=== PATIENT | female | born 2000 | race Caucasian/White ===

== ENCOUNTER 2024-03-21 13:19 | Emergency (ER) | payer BC, SELFPAY ==
[2024-03-21 13:20] VITALS: BP 132/83; PULSE 83; RESP 20; TEMP 36.8; O2SAT 96
--- NOTE | 2024-03-21 14:12 | ED.SKABFB ---
HPI - Skin/Abscess/Foreign Bdy General Chief complaint: Skin/Abscess/Foreign Body Stated complaint: cellulitis or abscess? Time Seen by Provider: 03/21/24 13:57 Source: patient Mode of arrival: ambulatory Limitations: no limitations History of Present Illness HPI narrative: This is a 24-year-old female who presents to the ED with chief complaint of possible abscess to the left buttock. Patient reports that she was seen earlier this week at another facility and given prescription for Keflex since the area was already draining. She states that the area has been continually draining small amounts of purulent drainage. Is quite painful to palpation. Denies fevers, chills, nausea, vomiting, troubles with bowel movements or urination. Related Data Allergies Allergy/AdvReac Type Severity Reaction Status Date / Time No Known Allergies Allergy Verified 03/21/24 13:24 Review of Systems Review of Systems: All systems as dictated in HPI Exam Narrative: GENERAL: Well-appearing, well-nourished, and in no acute distress. HEAD: Normocephalic, atraumatic. EYES: PERRLA and EOMI. ENT: Nares clear, no rhinorrhea or epistaxis. Mucous membranes moist. Oropharynx without tonsillar hypertrophy exudate or other lesions. NECK: Supple. No adenopathy or masses. CHEST: No respiratory distress. Clear to auscultation. No wheezes rales or rhonchi HEART: Regular rate and rhythm. No murmur heard. Normal peripheral pulses. ABDOMEN: Soft, nontender, nondistended, normal active bowel sounds. MSK: Normal range of motion. No edema. SKIN: Induration and erythema to the left central buttock. No perianal involvement. Mild amount of purulent /bloody drainage noted. Tender to palpation. NEURO: Alert and oriented x4. No focal deficits. PSYCH: Normal mood and affect. Course Vital Signs Vital signs: Vital Signs Temperature 98.3 F 03/21/24 13:20 Pulse Rate 83 03/21/24 13:20 Respiratory Rate 03/21/24 13:20 Blood Pressure 132/83 03/21/24 13:20 Pulse Oximetry 96 03/21/24 13:20 Oxygen Delivery Room Air 03/21/24 13:20 Temperature 98.3 F 03/21/24 13:20 Pulse Rate 83 03/21/24 13:20 Respiratory Rate 03/21/24 13:20 Blood Pressure 132/83 03/21/24 13:20 Pulse Oximetry 96 03/21/24 13:20 Oxygen Delivery Room Air 03/21/24 13:20 Procedures Abscess I/D lower extremity: Date of Incision: 03/14/24 Time of Incision: 14:39 Side (if applicable): left (buttock) Local Anesthetic: lidocaine 1% and with epi Amount of anesthesia used (mL): 6 Technique: needle aspiration Amount of fluid expressed (mL): 10 Irrigation: Yes Packing used?: none I&D Results: Pus and Blood Complications: pain Abcess I&D Additional Comments: the area was prepped with drapes and over 9 swabs. She tolerated the procedure well with no complications. Able to express a moderate amount of purulent material. Dressed with nonstick dressing. MDM - Skin/Abscess/Foreign Bdy MDM Narrative Medical decision making narrative: this is a 24-year-old female who presents to the ED with chief complaint of possible abscess to left buttock that she noticed earlier this week. Vitals are normal. Exam is remarkable for the above. There is an indurated section of the central left buttock that is consistent with abscess. The area was prepped and incision and drainage was performed. Moderate amount of purulent material expressed. Patient has significant relief of her pain following the procedure. she already has antibiotic prescription from other facility and I encouraged her to continue taking this through the full course. Pt will be discharged in stable condition. Return precautions given and supportive measures discussed. Pt is understanding and agreeable with plan for discharge and follow-up with PCP. Differential Diagnosis Differential diagnosis: Likely abscess of ski
== END 2024-03-21 14:50 | disposition home or self-care (01) ==
PROVIDERS: Emergency Provider Physician Assistant
DX: L02.31 Cutaneous abscess of buttock (principal)
CPT/HCPCS: 10060; 10160; 99282

== ENCOUNTER 2024-06-19 12:02 | Emergency (ER) | payer BC, SELFPAY ==
[2024-06-19 12:15] VITALS: BP 124/69; PULSE 70; RESP 14; TEMP 37; O2SAT 99
--- NOTE | 2024-06-19 14:11 | PC.NURSE ---
Pt did not respond to re vitals after mult attempts, pt did not notify nurse of exiting ER.
== END 2024-06-19 14:11 | disposition left against medical advice (07) ==
LOC: ANHED 14:14
DX: R22.30 Localized swelling, mass and lump, unspecified upper limb (principal)
CPT/HCPCS: 99199

== ENCOUNTER 2024-09-10 22:09 | Emergency (ER) | payer BC, SELFPAY ==
--- NOTE | ~2024-09-10 | CT_ITS ---
EXAMINATION: CT cervical spine wo con DATE: 09/11/2024 02:58 INDICATION: Left neck pain TECHNIQUE: Computed tomography (CT) of the cervical spine was performed without intravenous contrast. Automated exposure control and iterative reconstruction technique were employed. The dose-length pro duct was 460.63 mGy-cm. COMPARISON: None FINDINGS: 15 degrees cervicothoracic levocurvature. Slight reversal of the normal cervical lordosis. No spondyl olisthesis or facet subluxation. Vertebral body and disc heights are normal. Cervical uncovertebral a nd facet joints are normal. No central canal or neural foraminal stenosis. Visualized upper lungs are clear. Cervical soft tissues are unremarkable. IMPRESSION: 1. 15 degrees cervicothoracic levocurvature and mild reversal of the normal cervical lordosis which c ould be positional or due to muscle spasm. Otherwise unremarkable cervical spine CT. Reviewed, dictated and finalized at location A. [facility] PLANER IMPRESSION: 1. 15 degrees cervicothoracic levocurvature and mild reversal of the normal cer vical lordosis which could be positional or due to muscle spasm. Otherwise unre markable cervical spine CT.
--- OUTSIDE RECORDS SUMMARY | 2024-09-10 22:11 | XMS_ITS | Continuity of Care Document ---
Author Organization [facility] Address [address] [place] [address] Care Team Providers Care Barrel Lathe Operator Outside Name Role Phone NOELLE ANSARI Primary Care Provider Unavail able Assessment No assessment recorded. Plan of Treatment Reminders Order Date Submit Date Provider Last Modified By Organization Details Last Modified Time Details Appointments ANY 30 2023 04:00P M NOELLE ALEJO MD Not available Not available Not available Lab None record ed. Referral behavi oral health referr al - Social stress ors 2023 Biju [facility], [address] [facility] , [address], [place], [address], 09/09/2024 16:51:24 Procedures None record ed. Surgeries None record ed. Imaging None record ed. Medication Orders doxycy dobbs hyclat e 100 mg capsul e 2023 Elias Borges [facility] #[id number], [address], [place], [place], [id number], 08/18/2024 15:30:34 Mirala x 17 gram/d ose oral powder 2023 [id number], [address], [place], [place], [id number], 08/18/2024 15:30:30 famoti dine 20 mg tablet 2023 024 [id number], [address], [place], [place], [id number], 08/18/2024 15:30:33 Patient TargetsNo targets recorded. Patient Instructions Encounter Date Encounter Id Patient Instructions Last Modified By Organization Details Last Modified Time 08/18/2024 [id number] A healthy lifestyle: care instructions [email or web address] Not available 08/18/2024 19:34:05 On the date of this encounter, I saw and examined the patient, personally verifying the trin[place] and critical findings in the resident? s note. I reviewed and agree with the resident/fellow? s findings and plan as discussed. ~MD Ricky [email or web address] Not available 08/18/2024 15:01:03 Reason for Referral Behavioral Health Referral f or Depressive disorder Social stressors Referring Physician: Noelle Alejo, Automatic Brine Mixer Operator, Encounter Date: 08/18/2024 Problems Name Problem SNOMED Code Status Onset Date Resolution Date Notes Provider Name and Address Organization Details Recorded Time Family planning surveill ance Active 2018 OCP - Seasoniqu e NOELLE ALEJO MD Attn: Gypsy harrison,[address] [facility], [place], [address], [facility] 4 11:21:52 Dysuria 53598735 Completed 202108/19/2024 NOELLE ALEJO MD Attn: Gypsy harrison,[address] [facility], [place], [address], [place] - [facility] 4 11:21:17 Hidraden itis suppurat etienne 85491313 Active 2023 NOELLE ALEJO MD Attn: Gypsy harrison,[address] [facility], [place], [address], [place] - [facility] 4 11:40:05 Depressi ve disorder 20515183 Active 2023 NOELLE ALEJO MD Attn: Gypsy harrison,[address] [facility], [place], [address], [place] - [facility] 4 11:40:08 Acid reflux 369885681 Active 2023 NOELLE ALEJO MD Attn: Gypsy hunter,[address] [facility], [place], [address], [place] - [facility] 4 11:40:10 Constipa tion 50225052 Active 2023 NOELLE ALEJO MD Attn: Mitchpushpa harrison,[address] [facility], [place], [address], [place] - [facility] 4 11:40:12 At increase d risk of sexually transmit lisa infectio n 967470582 Active 2023 NOELLE ALEJO MD Attn: Gypsy harrison,[address] [facility], [place], [address], [place] - [facility] 4 11:40:15 History of sexually transmit lisa disease 964479326 Active 2023 NOELLE ALEJO MD Attn: Mitchpushpa harrison,[address] [facility], [place], [address], [place] - [facility] 4 11:40:17 Obesity 455149963 Active 2023 NOELLE ALEJO MD Attn: Gypsy harrison,[address] [facility], [place], [address], [place] - [facility] 4 11:40:23 Problem Notes None recorded. Procedures Surgical History Date Name Laterality Status Provider Name and Address Organization Details Recorded Time 06/12/20 21 Vulvar Biopsy completed BRIAN Donis Attn: Accounting,[address] [facility], [place], [address], [place] - [facility] 06/12/2021 15:47:33 Cholecystectomy completed Soledad Solano [place] - [facility] 08/18/2024 13:48:04 Imaging Results None recorded. Procedure Notes None recorded. Medical Equipment None Reported. Allergies No known drug allergies Medications Name Sig Start Date Stop Date Status Note LastModified by Organization Details LastModified Time multivitami n tablet Take 1 tablet every day by oral route. 12/25 completed Not Available Not Available Not Available cyclobenzap rine 10 mg tablet active Not Available Not Available Not Available amoxicillin 500 mg capsule TAKE 1 CAPSULE BY MOUTH THREE TIMES A DAY X7 DAYS 08/18 completed Not Available Not Available Not Available Miralax 17 gram/dose oral powder Take 17 g every day by oral route as needed for 30 days, for constipat ion. 2023 active Not Available Not Available Not Avai lable doxycycline hyclate 100 mg capsule Take 1 capsule twice a day by oral route for 30 days. active Not Available Not Available No t Available clindamycin HCl 300 mg capsule TAKE 1 CAPSULE BY MOUTH EVERY 6 HOURS FOR 10 DAYS 08/18 completed Not Available Not Available Not Available fluconazole 150 mg tablet TAKE 1 TABLET BY MOUTH ONCE FOR 1 DAY active Not Available Not Available No t Available fluconazole 200 mg tablet 1 TABLET AT END OF ANTIBIOTI CS AND 1 TABLET 72 HOURS LATER 10/09 completed Not Available Not Available Not Available phenazopyri dine 200 mg tablet Take 1 tablet 3 times a day by oral route for 2 days. 05/16 completed Not Available Not Available Not Available prednisone 20 mg tablet TAKE 1 TABLET BY MOUTH DAILY FOR 5 DAYS 08/18 completed Not Available Not Available Not Available terconazole 0.8 % vaginal cream Insert 1 applicato rful every day by vaginal route at bedtime for 3 days. 08/06 completed Not Available Not Available Not Available Zithromax Z-Sheldon 250 mg tablet TAKE 2 TABLETS (500 MG) BY ORAL ROUTE ONCE DAILY FOR 1 DAY THEN 1 TABLET (250 MG) BY ORAL ROUTE ONCE DAILY FOR 4 DAYS 05/27 completed Not Available Not Available Not Available metronidazo le 500 mg tablet TAKE 1 TABLET BY MOUTH EVERY 12 HOURS FOR 7 DAYS 08/18 completed Not Available Not Available Not Available sulfamethox azole 800 mg-trimetho prim 160 mg tablet TAKE 1 TABLET BY MOUTH TWICE DAILY FOR 10 DAYS 08/18 completed Not Available Not Available Not Available doxycycline monohydrate 100 mg tablet TAKE 1 TABLET BY MOUTH TWICE A DAY *NOT CONTRACTE D* 08/18 completed Not Available Not Available Not Available cefadroxil 500 mg capsule TAKE 1 CAPSULE BY MOUTH EVERY 12 HOURS FOR 7 DAYS 08/18 completed Not Available Not Available Not Available famotidine 20 mg tablet Take 1 tablet twice a day by oral route for 30 days. active Not Available Not Available No t Available imiquimod 5 % topical cream packet APPLY TO THE AFFECTED AREA(S) BY TOPICAL ROUTE 5 TIMES PER WEEK 05/24 completed Not Available Not Available Not Available doxycycline monohydrate 100 mg capsule TAKE 1 CAPSULE BY MOUTH TWICE A DAY FOR 7 DAYS 08/18 completed Not Available Not Available Not Available cephalexin 500 mg capsule TAKE 1 CAPSULE BY MOUTH EVERY 8 HOURS FOR 10 DAYS 08/18 completed Not Available Not Available Not Available ferrous sulfate 325 mg (65 mg iron) tablet Take 1 tablet every day by oral route. 05/16 completed Not Available Not Available Not Available ceftriaxone 500 mg solution for injection inject 500mg IM 1 time dose 08/06 completed Not Available Not Available Not Available methylpredn isolone 4 mg tablets in a dose pack TAKE 6 TABLETS ON DAY 1 DIRECTED ON PACKAGE AND DECREASE BY 1 TAB EACH DAY FOR A TOTAL OF 6 DAYS 10/09 completed Not Available Not Available Not Available doxycycline hyclate 100 mg tablet TAKE 1 TABLET BY MOUTH TWICE A DAY FOR 7 DAYS 10/09 completed Not Available Not Available Not Available naproxen 500 mg tablet active Not Available Not Available Not Available amoxicillin 875 mg-potassiu m clavulanate 125 mg tablet TAKE 1 TABLET BY MOUTH TWICE A DAY 10/09 completed Not Available Not Available Not Available Depo-[place] a 150 mg/mL intramuscul ar syringe Inject 150 mL every 3 months by intramusc ular route. 05/21 completed Not Available Not Available Not Available azithromyci n 500 mg tablet TAKE 2 TABLETS BY MOUTH EVERY DAY FOR 1 DAY 01/30 completed Not Available Not Available Not Available Vitamin D3 25 mcg (1,000 unit) tablet Take 1 tablet every day by oral route. 05/16 completed Not Available Not Available Not Available nitrofurant oin monohydrate /macrocryst als 100 mg capsule TAKE 1 CAPSULE BY MOUTH TWICE DAILY 08/18 completed Not Available Not Available Not Available Lo Loestrin Fe 1 mg-10 mcg (24)/10 mcg (2) tablet Take 1 tablet every day by oral route. 05/21 completed Not Available Not Available Not Available calcium 600 mg (as carbonate)- vitamin D3 20 mcg (800 unit) tablet Take 1 tablet twice a day by oral route for 30 days. 05/02 completed Not Available Not Available Not Available Daysee 0.15 mg-30 mcg (84)/10 mcg(7) tablets,3 month dose pack TAKE ONE TABLET BY MOUTH EVERY DAY 08/18 completed Not Available Not Available Not Available Xulane 150 mcg-35 mcg/24 hr transdermal patch Apply 1 patch every week by transderm al route. 05/27 completed Not Available Not Available Not Available Vitals Date Recorded Body height Body mass index (BMI) Body weight Body temperature Heart rate Respiratory rate Systolic blood pressure Diastolic blood pressure Provider Name and Address Organization Details Last Updated DateTime 4 158.75 cm 30.9 kg/m2 68560.1 g 98.3 [degF] 80 /min 20 /min 128 mm[Hg] 79 mm[Hg] Soledad Solano [place] - [facility] 4 13:47:34 Social History Question Answer Notes LastModified by Organizat ion Details LastModified Time Tobacco Smoking Status Never Smoker Farida Berger MA [facility], [place] - [place] 08/28/2017 11:10:17 Do You Have An Advance Directive? No Information not available 08/28/2017 What Is Your Level Of Alcohol Consumption? None Information not available 08/28/2017 Is Blood Transfusion Acceptable In An Emergency? Yes Information not available 08/28/2017 What Is Your Level Of Caffeine Consumption? Moderate Information not available 08/28/2017 How Much Tobacco Do You Chew? None Information not available 08/28/2017 In The 14 Days Before Symptom Onset, Have You Had Close Contact With A Laboratory-confir med COVID-19 While That Case Was Ill? No [email or web address] Information not available 06/12/2021 In The 14 Days Before Symptom Onset, Have You Had Close Contact With A Person Who Is Under Investigation For COVID-19 While That Person Was Ill? No [email or web address] Information not available 06/12/2021 Have You Been To An Area Known To Be High Risk For COVID-19? No [email or web address] Information not available 06/12/2021 Are You Currently Employed? No Information not available 08/28/2017 What Type Of Diet Are You Following? REGULAR Information not available 08/28/2017 Which Illicit Or Recreational Drugs Have You Used? None Information not available 08/28/2017 Do You Or Have You Ever Used E-cigarettes Or Vape? Never Used Electronic Cigarettes Information not available 08/18/2019 Education 9 Information no t available 08/28/2017 What Is Your Occupation? Student Information not available 08/28/2017 Live Alone Or With Others? With Others Information not available 08/28/2017 What Was The Date Of Your Most Recent Tobacco Screening? 08/18/2024 Information not available 08/18/2024 How Many Children Do You Have? 0 Information not available 08/28/2017 Performs Monthly Self-breast Exam? Yes Information no t available 08/28/2017 Do You Use Protection During Sex? Usually Information not available 08/18/2019 What Is Your Relationship Status? Single Information not available 08/28/2017 Seat Belts Used Routinely Yes Information not available 08/28/2017 Are You Sexually Active? Yes Information not available 08/18/2019 Do You Have Smoke And Carbon Monoxide Detectors In Your Home? Yes [email or web address] Information not available 09/26/2022 Are You Passively Exposed To Smoke? No [email or web address] Information no t available 09/26/2022 Do You Or Have You Ever Used Smokeless Tobacco? Never Used Smokeless Tobacco Information not available 08/18/2019 How Much Tobacco Do You Smoke? No Information not available 08/18/2019 General Stress Level Low Information not available 08/28/2017 Do You Use Any Illicit Or Recreational Drugs? No [email or web address] Information not available 09/26/2022 Do You Use Sunscreen Routinely? No Information not available 08/28/2017 Has Tobacco Cessation Counseling Been Provided? No [email or web address] Information not available 10/09/2023 On What Date Was Tobacco Cessation Counseling Provided? 08/18/2024 Information not available 08/18/2024 How Many Years Have You Smoked Tobacco? 0 [email or web address] Information not available 08/18/2019 Do You Or Have You Ever Used Any Other Forms Of Tobacco Or Nicotine? No [email or web address] Information not available 06/12/2021 Sex: Female Functional Status Question Answer Note LastModified by Organization D etails LastModified Time What is your exercise level? Moderate Information not available 08/28/2017 Mental Status None recorded. Family History Relationship Description Onset Age of this Age Resolved Age Notes LastModified by Organization Details LastModified Time Mother Asthma Not available 11:08:30 Sister Asthma X2 Not available 11:08:47 Maternal Grandmother Diabetes mellitus Not available 2016 11:09:02 Maternal Grandmother Congestive heart failure Not available 2016 11:09:55 Notes:Great granmother Medical History Condition Response Other N High Blood Pressure N Breast Cancer N Thyroid Problems N Kidney or Bladder Problems N Lung Disease N GI Problems N Depression N Blood Clots N Acne N Eating Disorder N Breast Problem N Anemia N Anesthesia Complications N Headaches/Migraines N Ovarian Cancer N Diabetes N Anxiety Disorder N Muscle, Joint, or Bone Problems N Blood Transfusions N Seizures/Epilepsy N Polyps N Infertility N Acid Reflux (GERD) N Cancer N Abuse/Domestic Violence N Asthma N Endometriosis N High Cholesterol N Hepatitis N Liver Disease N Heart Disease N Pre-Eclampsia N Osteoporosis N Gynecological History Statement/Question Response Abnormal Pap N Flow Light Date of LMP 07/31/2024 On BCP's at Conception? N STIs/STDs Yes HPV Vaccine Y Duration of Flow (days) 7 Age at Menarche 14 Current Control Method BCPs Age at First Child Sexually Active? Y Menses Monthly No Sexual Problems? No LMP Approximate Desired Control Method BCPs Obstetrics History GPAL:G 0 P 0 0 0 0 Type Value Multiple Births 0 Full Term 0 Induced 0 Spontaneous 0 Premature 0 Living 0 Ectopics 0 Total 0 Past Encounters Encounter ID Performer Location Encounter Start Date Encounter Closed Date Diagnosis/Indication Diagnosis SNOMED-CT Code Diagnosis ICD10 Code [id number] MD [facility] [address] [facility] [address] [place] [address] 08/18/2024 13:33:25 09/01/2024 15:04:02 Obesity 059317730 E66.9 Hidradenit is suppurativa 58838247 L73.2 Depressive disorder 3548 9007 F32.A Acid reflux 128798561 K2 1.9 Constipation 19908595 K5 9.00 Screening for malignant neoplasm of cervix 624562729 Z12.4 History of sexually transmitted disease 953869147 Z86.19 [facility] sexually transmitted infection 784662883 Z20.2 Tetanus va ccination declined by patient 525843399 Z28.21 Health Concerns Section Related Observation LastModified by Organization Detai ls LastModified Time None Recorded Concern Status LastModified by Organization Details LastModified Time None Recorded Payers Encounter Date Sequence Insurance Name Policy Number Policy Recio Covered Member ID Recio Member ID Guarantor Name 08/18/2024 1 [facility] (MEDICAID REPLACEMENT - HMO) [id number] Deirdre Baxter [id number] Deirdre Baxter Notes Date Note Type Note Provider Name and Address Organization Details Recorded Time 4 text/html Deirdre Baxter is a 24 year old female with hidradenitis supurativa. She is new to my care and presents to the office to establish care. Reports the following concerns:1. Hidradenitis supurativaReports boils to axilla, multiple episodes x 5 mo.Has visited that ED consider multiple times (4-5 times) for drainage. Has received antibiotic therapy after each drainage, and cannot recall the name of the antibiotic.Normal healing, denies keloid formation. 2[facility]Reports constipation, with on and off stabbing abdominal pain, afterwards has diarrhea for a day and cycles continues. Reports having a bowel movement yesterday.Reports migraines at the same time as abdominal issues. Frontal headaches that lasts a couple of days, light makes it worse, associated with nausea but no emesis.Not taking stool softener or laxatives. 3. HeartburnReflux after meals specially containing cheese, fried or spicy.Denies regurgitation.---She is single and feels safe at home.She is unemployed, looking for employment.Good appetite but mostly eats junk food.Cycles are described as regular, on OCP - Seasonique, takes hormonal pills consecutively and has withdrawal bleeding every 3 months. LMP: three weeks ago.Sexually active with 4 partners, history of chlamydia treated, negative follow up test.Not physically active.Sleep well trough the night, with/ without heavy snoring of pauses in breathing.Has not been to the dentist.Drinks alcohol socially but barely, denies smoking or recreational drugs.Positive depression symptoms due to social stressors and unemployment. Would like to BH referral for counseling. Uzma Amezcua MD Attn: Accounting,[address] [place], [address], [facility] 08/31/2024 11:32:08 OBGyn Episode No OBEpisode recorded.
--- OUTSIDE RECORDS SUMMARY | 2024-09-10 22:11 | XMS_ITS | Data Portability ---
Author Organization [facility] Valarie Address [address] [place] [address] Care Team Providers Care Graphic Design Specialist Name Role Phone NOELLE ANSARI Primary Care Provider Unavail able Assessment No assessment recorded. Plan of Treatment Reminders Order Date Submit Date Provider Last Modified By Organization Details Last Modified Time Details Appointments ANY 30 2023 04:00P M NOELLE ALEJO MD Not available Not available Not available Lab vagina l pathog ens panel, SIMEON+pr obe, vagina l fluid 2022 023 [facility], [address], [address], [place], [address], 08/08/2023 16:13:21 cytolo gy report , thin prep, smear or scrapi ng, cervic al or vagina l - cervix /endoc ervix. collec tion techni que brush and broom 2022 023 [facility], [address], [address], [place], [address], 08/09/2023 07:18:33 chlamy monae tracho matis + neisse ehsan gonorr hoeae + tricho monas vagina lis DNA panel, SIMEON+pr obe, unspec ified specim en 2023 024 [facility], [address], [address], [place], [address], 10/11/2023 07:18:36 HIV 1 + 2, meanin gful use set 2023 024 [facility], [address] [place] [address], [address], [place], [address], 10/11/2023 07:18:38 RPR (rapid plasma reagin ), serum 2023 024 [facility], [address] [place] [address], [address], [place], [address], 10/11/2023 07:18:37 Hepati tis C IgG Ab, qual, serum 2023 024 [facility], [address] [place] [address], [address], [place], [address], 10/11/2023 07:18:34 HBsAg (hepat itis B surfac e Ag), EIA, serum 2023 024 [facility], [address] [place] [address], [address], [place], [address], 10/11/2023 07:18:37 hsv (1+2) igg, serum 2023 024 [facility], [address] [place] [address], [address], [place], [address], 10/11/2023 07:18:35 chlamy monae tracho matis + neisse ehsan gonorr hoeae + tricho monas vagina lis DNA panel, SIMEON+pr obe, unspec ified specim en 2023 024 [facility], [address] [place] [address], [address], [place], [address], 11/17/2023 07:09:24 HIV 1 + 2, meanin gful use set 2023 024 [facility], [address], [address], [place], [address], 11/17/2023 07:09:25 RPR (rapid plasma reagin ), serum 2023 024 [facility], [address] [place] [address], [address], [place], [address], 11/17/2023 07:09:25 HBsAg (hepat itis B surfac e Ag), EIA, serum 2023 024 [facility], [address] [place] [address], [address], [place], [address], 11/15/2023 11:12:52 Hepati tis C IgG Ab, qual, serum 2023 024 [facility], [address] [place] [address], [address], [place], [address], 11/17/2023 07:09:24 Referral behavi oral health referr al - Social stress ors 2023 024 [facility], [address] [place] [address], [address], [address], [place], [address], 09/09/2024 16:51:24 Procedures None record ed. Surgeries None record ed. Imaging None record ed. Medication Orders ceftri axone 500 mg soluti on for inject ion 2022 023 [id number], [address], [place], [id number], 08/06/2023 15:30:54 metron idazol e 500 mg tablet 2022 024 [id number], [address], [place], [id number], 08/18/2024 13:50:27 doxycy dobbs hyclat e 100 mg capsul e 2023 [facility] #[id number], [address] , [place], [place], [id number], 08/18/2024 15:30:34 Mirala x 17 gram/d ose oral powder 2023 [facility] #[id number], [address], [place], [place], [id number], 08/18/2024 15:30:30 famoti dine 20 mg tablet 2023 [facility] #[id number], [address] , [place], [place], [phone], 08/18/2024 15:30:33 Patient TargetsNo targets recorded. Patient Instructions Encounter Date Encounter Id Patient Instructions Last Modified By Organization Details Last Modified Time 08/06/2023 [id number] A healthy lifestyle: care instructions [email or web address] Not available 08/06/2023 16:10:16 10/09/2023 [id number] A healthy lifestyle: care instructions [email or web address] Not available 10/09/2023 15:16:49 08/18/2024 [id number] A healthy lifestyle: care instructions [email or web address] Not available 08/18/2024 19:34:05 On the date of this encounter, I saw and examined the patient, personally verifying the [place]in[place] and critical findings in the resident? s note. I reviewed and agree with the resident/fellow? s findings and plan as discussed. ~MD sonia [email or web address] Not available 08/18/2024 15:01:03 Reason for Referral Behavioral Health Referral f or Depressive disorder Social stressors Referring Physician: Noelle Alejo, Swatcher, Encounter Date: 08/18/2024 Results Created Date Observation Date Name Description Value Unit Range Abnormal Flag Note LastModifiedBy Organization Detail LastModifiedTime 01/22/2001/23/2023 NUSWA B VAGIN ITIS PLUS (VG+) atopobium vaginae Low - 0 score Not Available [facility] ([facility]) [address] [place], [address], 01/23/2023 19:09:58 01/22/20 23 01/23/2023 NUSWA B VAGIN ITIS PLUS (VG+) bvab 2 Low - 0 score Not Available [facility] ([facility]) [address] [place], [address], 01/23/2023 19:09:58 01/22/20 23 01/23/2023 NUA B VAGIN ITIS PLUS (VG+) megasphaera 1 Low - 0 score Calcu late total score by velasquez harrison the 3 indiv idual bacte rial vagin osis (BV) marke r score s toget her. Total score is inter prete d as follo ws: Total score 0-1: Indic ates the absen ce of BV. Total score 2: Indet ermin ate for BV. Addit ional clini brandie data shoul d be evalu ated to estab adithya a diagn osis. Total score 3-6: Indic ates the prese nce of BV. This test was devel oped and its perfo rmanc e jose alberto cteri stics deter mined by [facility]. It has not been clear ed or appro prabhu by the Food and Drug Admin istra tion. Not Available [facility] ([facility]) [address], [place], [address], 01/23/2023 19:09:58 01/22/20 23 01/23/2023 NUSWA B VAGIN ITIS PLUS (VG+) roscoe albicans, SIMEON Negati ve negati ve Not Available [facility] ([facility]) [address], [place], [address], 01/23/2023 19:09:58 01/22/20 23 01/23/2023 NUSWA B VAGIN ITIS PLUS (VG+) roscoe glabrata, SIMEON Negati ve negati ve Not Available [facility] ([facility]) [address], [place], [address], 01/23/2023 19:09:58 01/22/20 23 01/23/2023 NUSWA B VAGIN ITIS PLUS (VG+) trich vag by SIMEON Negati ve negati ve Not Available [facility] ([facility]) [address], [place], [address], 01/23/2023 19:09:58 01/22/20 23 01/23/2023 NUA B VAGIN ITIS PLUS (VG+) chlamydia trachomatis, SIMEON Negati ve negati ve Not Available [facility] ([facility]) [address], [place], [address], 01/23/2023 19:09:58 01/22/20 23 01/23/2023 NUA B VAGIN ITIS PLUS (VG+) neisseria gonorrhoeae, SIMEON Positi ve negati ve abnormal Not Available [facility] ([facility]) [address], [place], [address], 01/23/2023 19:09:58 01/22/20 23 01/22/2023 HBSAG SCREE N HBsAg screen Negati ve negati ve Not Available [facility] ([facility]) [address] [place], [address], 01/23/2023 19:09:58 01/22/2001/22/2023 RPR, RFX QN RPR/C ONFIR M TP RPR Non Reacti ve nonrea ctive Not Available [facility] ([facility]) [address] [place], [address], 01/23/2023 19:09:59 01/22/20 23 01/22/2023 HIV AB/P2 4 AG WITH REFLE X HIV Ab/P24 Ag screen Non Reacti ve nonrea ctive HIV Negat andreas HIV-1 /HIV- 2 antib odies and HIV-1 p24 antig en were NOT detec lisa. There is no labor atory evide nce of HIV infec tion. Not Available [facility] ([facility]) [address], [place], [address], 01/23/2023 19:10:00 01/22/2001/23/2023 URINE CULTU RE,CO MPREH ENSIV E urine culture,comp rehensive Final report abnormal Not Available [facility] ([facility]) [address], [place], [address], 01/23/2023 08:24:46 01/22/2001/23/2023 URINE CULTU RE,CO MPREH ENSIV E result 1 Commen t abnormal Beta hemol ytic Strep tococ cus, group B 25,00 0-50, 000 colon y formi ng units per mL Penic illin and ampic illin are drugs of choic e for treat ment of beta- hemol ytic strep tococ brandie infec tions . Susce ptibi lity testi ng of penic illin s and other beta- lacta m agent s appro prabhu by the FDA for treat ment of beta- hemol ytic strep tococ brandie infec tions need not be perfo rmed routi husam becau se nonsu scept ible isola jose luis are extre henrry rare in any beta- hemol ytic strep tococ cus and have not been repor lisa for Strep tococ cus pyoge honey (grou p A). (CLSI ) Not Available [facility] ([facility]) [address], [place], [address], 01/23/2023 08:24:46 01/22/2001/22/2023 HCV ANTIB CHERYL hep C virus Ab Non Reacti ve nonrea ctive HCV antib cheryl alone does not diffe renti ate betwe en previ ously resol prabhu infec tion and activ e infec tion. Equiv ocal and React andreas HCV antib cheryl resul ts shoul d be follo wed up with an HCV RNA test to suppo rt the diagn osis of activ e HCV infec tion. Not Available [facility] ([facility]) [address], [place], [address], 01/23/2023 19:09:57 01/22/20 23 01/21/2023 urina lysis , dipst ick Leukocytes Small Not Available In-Offi ce Order Internal Use Only DO Not Attach Compendium DO Not Attach Compendium, Do Not Delete/merge, 01/21/2023 16:25:52 01/22/20 23 01/21/2023 urina lysis , dipst ick Nitrite negati ve Not Available In-Office Order Internal Use Only DO Not Attach Compendium DO Not Attach Compendium, Do Not Delete/merge, 01/21/2023 16:25:52 01/22/20 23 01/21/2023 urina lysis , dipst ick Urobilinogen .2 Not Available In-Of fice Order Internal Use Only DO Not Attach Compendium DO Not Attach Compendium, Do Not Delete/merge, 01/21/2023 16:25:52 01/22/20 23 01/21/2023 urina lysis , dipst ick Protein 30 Not Available In-Office Order Internal Use Only DO Not Attach Compendium DO Not Attach Compendium, Do Not Delete/merge, 01/21/2023 16:25:52 01/22/20 23 01/21/2023 urina lysis , dipst ick pH 5.5 Not Available In-Office Order Internal Use Only DO Not Attach Compendium DO Not Attach Compendium, Do Not Delete/merge, 01/21/2023 16:25:52 01/22/20 23 01/21/2023 urina lysis , dipst ick Blood Non-He molyze d: Trace Not Available In-Office Order Internal Use Only DO Not Attach Compendium DO Not Attach Compendium, Do Not Delete/merge, 01/21/2023 16:25:52 01/22/20 23 01/21/2023 urina lysis , dipst ick Specific [place] 1.025 Not Available In-Off ice Order Internal Use Only DO Not Attach Compendium DO Not Attach Compendium, Do Not Delete/merge, 01/21/2023 16:25:52 01/22/20 23 01/21/2023 urina lysis , dipst ick Ketone Trace Not Available In-Office Order Internal Use Only DO Not Attach Compendium DO Not Attach Compendium, Do Not Delete/merge, 01/21/2023 16:25:52 01/22/20 23 01/21/2023 urina lysis , dipst ick Bilirubin Small Not Available In-Offic e Order Internal Use Only DO Not Attach Compendium DO Not Attach Compendium, Do Not Delete/merge, 01/21/2023 16:25:52 01/22/20 23 01/21/2023 urina lysis , dipst ick Glucose Negati ve Not Available In-Office Order Internal Use Only DO Not Attach Compendium DO Not Attach Compendium, Do Not Delete/merge, 01/21/2023 16:25:52 01/22/20 23 01/21/2023 urina lysis , dipst ick Appearance Cloudy Not Available In-Offi ce Order Internal Use Only DO Not Attach Compendium DO Not Attach Compendium, Do Not Delete/merge, 01/21/2023 16:25:52 01/22/20 23 01/21/2023 urina lysis , dipst ick Color Dark Yellow Not Available In-Office Order Internal Use Only DO Not Attach Compendium DO Not Attach Compendium, Do Not Delete/merge, 01/21/2023 16:25:52 08/06/20 23 08/08/2023 NUSWA B VAGIN ITIS PLUS (VG+) atopobium vaginae Low - 0 score Not Available [facility] ([facility]) [address], [place], [address], 08/08/2023 16:13:21 08/06/20 23 08/08/2023 NUSWA B VAGIN ITIS PLUS (VG+) bvab 2 Low - 0 score Not Available [facility] ([facility]) [address], [place], [address], 08/08/2023 16:13:21 08/06/20 23 08/08/2023 NUSWA B VAGIN ITIS PLUS (VG+) megasphaera 1 Low - 0 score Calcu late total score by velasquez harrison the 3 indiv idual bacte rial vagin osis (BV) marke r score s toget her. Total score is inter prete d as follo ws: Total score 0-1: Indic ates the absen ce of BV. Total score 2: Indet ermin ate for BV. Addit ional clini brandie data shoul d be evalu ated to estab adithya a diagn osis. Total score 3-6: Indic ates the prese nce of BV. This test was devel oped and its perfo rmanc e jose alberto cteri stics deter mined by [facility]. It has not been clear ed or appro prabhu by the Food and Drug Admin istra tion. Not Available [facility] ([facility]) [address] [place], [address], 08/08/2023 16:13:21 08/06/20 23 08/08/2023 NUSWA B VAGIN ITIS PLUS (VG+) roscoe albicans, SIMEON Negati ve negati ve Not Available [facility] ([facility]) [address] [place], [address], 08/08/2023 16:13:21 08/06/20 23 08/08/2023 NUSWA B VAGIN ITIS PLUS (VG+) roscoe glabrata, SIMEON Negati ve negati ve Not Available [facility] ([facility]) [address] [place], [address], 08/08/2023 16:13:21 08/06/20 23 08/08/2023 NUSWA B VAGIN ITIS PLUS (VG+) trich vag by SIMEON Negati ve negati ve Not Available [facility] ([facility]) [address] [place], [address], 08/08/2023 16:13:21 11/07/20 23 08/08/2023 NUSWA B VAGIN ITIS PLUS (VG+) chlamydia trachomatis, SIMEON Positi ve negati ve abnormal Not Available [facility] ([facility]) [address], [place], [address], 08/08/2023 16:13:21 08/06/20 23 08/08/2023 NUSWA B VAGIN ITIS PLUS (VG+) neisseria gonorrhoeae, SIMEON Negati ve negati ve Not Available [facility] ([facility]) [address] [facility], [place], [address], 08/08/2023 16:13:21 08/06/20 23 08/09/2023 IGP, RFX APTIM A HPV ASCU diagnosis: Gerber MENDES ANDREAS FOR INTRA EPITH ELIAL LESIO N OR AJAY BERTRAND . Not Available [facility] ([facility]) [address] [facility], [place], [address], 08/09/2023 07:18:33 08/06/20 23 08/09/2023 IGP, RFX APTIM A HPV ASCU specimen adequacy: Gerber sky Satis facto ry for evalu ation . Endoc ervic al and/o r squam ous metap lasti c cells (endo cervi brandie compo nent) are prese nt. Not Available [facility] ([facility]) [address], [place], [address], 08/09/2023 07:18:33 08/06/20 23 08/09/2023 IGP, RFX APTIM A HPV ASCU clinician provided ICD10: Gerber sky N89.8 Z01.4 19 Not Available [facility] ([facility]) [address], [place], [address], 08/09/2023 07:18:33 08/06/20 23 08/09/2023 IGP, RFX APTIM A HPV ASCU performed by: Commen t Yulisa tte Maureen , [employer] e[employer]o logis t Not Available [facility] ([facility]) [address] [facility], [place], [address], 08/09/2023 07:18:33 08/06/20 23 08/09/2023 IGP, RFX APTIM A HPV ASCU . . Not Available [facility] ([facility]) [address], [place], [address], 08/09/2023 07:18:33 08/06/20 23 08/09/2023 IGP, RFX APTIM A HPV ASCU note: Commen t The Pap smear is a scree lalit test desig martina to aid in the detec tion of jose ligna nt and malig nant condi tions of the uteri ne cervi x. It is not a diagn ostic proce dure and shoul d not be used as the sole means of detec ting cervi brandie cance r. Both false -posi tive and false -nega tive repor ts do occur . Not Available [facility] ([facility]) [address] [facility], [place], [address], 08/09/2023 07:18:33 08/06/20 23 08/09/2023 IGP, RFX APTIM A HPV ASCU test methodology: Commen t This liqui d based ThinP rep(R ) pap test was scree martina with the use of an image guide d syste m. Not Available [facility] ([facility]) [address], [place], [address], 08/09/2023 07:18:33 08/06/20 23 08/09/2023 IGP, RFX APTIM A HPV ASCU . Commen t The HPV DNA refle x crite ehsan were not met with this speci men resul t there fore, no HPV testi ng was perfo rmed. Not Available [facility] ([facility]) [address] [facility] [address], [place], [address], 08/09/2023 07:18:33 10/09/19 24 10/10/2023 HCV ANTIB CHERYL hep C virus Ab Non Reacti ve nonrea ctive HCV antib cheryl alone does not diffe renti ate betwe en previ ously resol prabhu infec tion and activ e infec tion. Equiv ocal and React andreas HCV antib cheryl resul ts shoul d be follo wed up with an HCV RNA test to suppo rt the diagn osis of activ e HCV infec tion. Not Available [facility] ([facility]) [address] [facility], [place], [address], 10/11/2023 07:18:34 10/09/19 24 10/10/2023 HSV 1 AND 2 AB, IGG hsv 1 IgG, type spec 39.50 index 0.00-0 .90 above high normal Negat andreas <0.91 Equiv ocal 0.91 - 1.09 Posit andreas >1.09 Note: Negat andreas indic ates no antib odies detec lisa to HSV-1 . Equiv ocal may sugge st early infec tion. If clini rudi appro priat e, retes t at later date. Posit andreas indic ates antib odies detec lisa to HSV-1 . Not Available [facility] ([facility]) [address] [facility], [place], [address], 10/11/2023 07:18:35 10/09/19 24 10/10/2023 HSV 1 AND 2 AB, IGG hsv 2 IgG, type spec <0.91 index 0.00-0 .90 Negat andreas <0.91 Equiv ocal 0.91 - 1.09 Posit andreas >1.09 HSV-2 Antib cheryl Inter preta tion: Curre nt guide lines and recom menda tions do not recom mend routi ne scree lalit for HSV-2 in asymp tomat ic indiv idual s, inclu ding those that are pregn ant. A negat andreas antib cheryl resul t indic ates no detec table antib odies to HSV-2 were found . If recen t expos ure is suspe cted, retes t in 4 to 6 weeks . Equiv ocal sampl es shoul d be retes lisa in 4 to 6 weeks . A posit andreas resul t indic ates the prese nce of detec table IgG antib cheryl to HSV-2 . FALSE POSIT ANDREAS RESUL TS MAY OCCUR . Repea t testi ng, or testi ng by a diffe rent metho d, may be indic ated in some setti ngs (e.g. patie nts with low likel ihood of HSV infec tion) . If clini rudi appro priat e, retes t 4 to 6 weeks later . HSV-2 IgG antib cheryl testi ng resul ts shoul d be clini rudi corre lated . Not Available [facility] ([facility]) [address] [place], [address], 10/11/2023 07:18:35 10/09/19 24 10/10/2023 CT, NG, TRICH VAG BY SIMEON chlamydia by SIMEON Negati ve negati ve Not Available [facility] ([facility]) [address] [place], [address], 10/11/2023 07:18:36 10/09/19 24 10/10/2023 CT, NG, TRICH VAG BY SIMEON gonococcus by SIMEON Negati ve negati ve Not Available [facility]) [address] [place], [address], 10/11/2023 07:18:36 10/09/19 24 10/10/2023 CT, NG, TRICH VAG BY SIMEON trich vag by SIMEON Negati ve negati ve Not Available [facility]) [address] [place], [address], 10/11/2023 07:18:36 10/09/19 24 10/10/2023 HBSAG SCREE N HBsAg screen Negati ve negati ve Not Available [facility]) [address] [place], [address], 10/11/2023 07:18:37 10/09/19 24 10/10/2023 RPR, RFX QN RPR/C ONFIR M TP RPR Non Reacti ve nonrea ctive Not Available [facility]) [address] [facility], [place], [address], 10/11/2023 07:18:37 10/09/19 24 10/10/2023 HIV AB/P2 4 AG WITH REFLE X HIV Ab/P24 Ag screen Non Reacti ve nonrea ctive HIV Negat andreas HIV-1 /HIV- 2 antib odies and HIV-1 p24 antig en were NOT detec lisa. There is no labor atory evide nce of HIV infec tion. Not Available [facility] ([facility]) [address] [facility], [place], [address], 10/11/2023 07:18:38 11/14/19 24 11/15/2023 HBSAG SCREE N HBsAg screen Negati ve negati ve Not Available [facility]) [address] [facility], [place], [address], 11/15/2023 11:12:52 11/14/1911/15/2023 HCV ANTIB CHERYL hep C virus Ab Non Reacti ve nonrea ctive HCV antib cheryl alone does not diffe renti ate betwe en previ ously resol prabhu infec tion and activ e infec tion. Equiv ocal and React andreas HCV antib cheryl resul ts shoul d be follo wed up with an HCV RNA test to suppo rt the diagn osis of activ e HCV infec tion. Not Available [facility] ([facility]) [address] [facility], [place], [address], 11/17/2023 07:09:24 11/14/19 24 11/17/2023 CT, NG, TRICH VAG BY SIMEON chlamydia by SIMEON Positi ve negati ve abnormal Not Available [facility] ([facility]) [address] [facility], [place], [address], 11/17/2023 07:09:24 11/14/19 24 11/17/2023 CT, NG, TRICH VAG BY SIMEON gonococcus by SIMEON Negati ve negati ve Not Available [facility] ([facility]) [address] [facility], [place], [address], 11/17/2023 07:09:24 11/14/19 24 11/17/2023 CT, NG, TRICH VAG BY SIMEON trich vag by SIMEON Negati ve negati ve Not Available [facility]) [address] [facility], [place], [address], 11/17/2023 07:09:24 11/14/19 24 11/15/2023 RPR, RFX QN RPR/C ONFIR M TP RPR Non Reacti ve nonrea ctive Not Available [facility]) [address] [facility], [place], [address], 11/17/2023 07:09:25 11/14/19 24 11/15/2023 HIV AB/P2 4 AG WITH REFLE X HIV Ab/P24 Ag screen Non Reacti ve nonrea ctive HIV Negat andreas HIV-1 /HIV- 2 antib odies and HIV-1 p24 antig en were NOT detec lisa. There is no labor atory evide nce of HIV infec tion. Not Available [facility] ([facility]) [address] [place], [address], 11/17/2023 07:09:25 Result Notes None recorded. Problems Name Problem SNOMED Code Status Onset Date Resolution Date Notes Provider Name and Address Organization Details Recorded Time Family planning surveill ance Active 2018 [facility] - Seasoniqu e NOELLE ALEJO MD Attn: Gypsy harrison,[address] [facility], [place], [address], [facility] - [facility] 4 11:21:52 Dysuria 35174373 Completed 202108/19/2024 NOELLE ALEJO MD Attn: Gypsy harrison,[address] [facility], [place], [address], [place] - [facility] 4 11:21:17 Hidraden itis suppurat etienne 30898845 Active 2023 NOELLE ALEJO MD Attn: Mitchpushpa harrison,[address] [facility], [place], [address], [place] [facility] 4 11:40:05 Depressi ve disorder 22133350 Active 2023 NOELLE ALEJO MD Attn: Gypsy harrison,[address] [facility], [place], [address], [place] [facility] 4 11:40:08 Acid reflux 946612306 Active 2023 NOELLE ALEJO MD Attn: Gypsy harrison,[address] [facility], [place], [address], [place] [facility] 4 11:40:10 Constipa tion 90818417 Active 2023 NOELLE ALEJO MD Attn: Gypsy harrison,[address] [facility], [place], [address], [place] [facility] 4 11:40:12 At increase d risk of sexually transmit lisa infectio n 215730667 Active 2023 NOELLE ALEJO MD Attn: Gypsy harrison,[address] [facility], [place], [address], [place] [facility] 4 11:40:15 History of sexually transmit lisa disease 568752178 Active 2023 NOELLE ALEJO MD Attn: Gypsy harrison,[address] [facility], [place], [address], [place] [facility] 4 11:40:17 Obesity 381090977 Active 2023 NOELLE ALEJO MD Attn: Gypsy harrison,[address] [facility], [place], [address], [place] [facility] 4 11:40:23 Problem Notes None recorded. Procedures Surgical History Date Name Laterality Status Provider Name and Address Organization Details Recorded Time 06/12/20 21 Vulvar Biopsy completed BRIAN Donis Attn: Accounting,[address] , [place], [address], [facility] - [facility] 06/12/2021 15:47:33 Cholecystectomy completed Soledad Solano [place] - [facility] 08/18/2024 13:48:04 Imaging Results None recorded. Procedure [...] completed Not Available Not Available Not Available [employer] Supervisor a 150 mg/mL intramuscul ar syringe Inject [...] Body height Body mass index (BMI) Body mass index (BMI) Percentile per age and sex Body weight Body temperature Respiratory rate Oxygen saturation Oxygen saturation in Arterial blood by Pulse oximetry Systolic blood pressure Diastolic blood pressure Provider Name and Address Organization Details Last Updated DateTime 3 158.75 cm 19.1 kg/m2 16 % 44600.8 9 g 98.2 [degF] 16 /min 97 % 97 % 110 mm[Hg] 72 mm[Hg] Jocy Perdomo RN [place] - [facility] 3 15:32:44 Date Recorded Body height Body mass index (BMI) Body weight Systolic blood pressure Diastolic blood pressure Provider Name and Address Organization Details Last Updated DateTime 08/06/2023 158.75 cm 29.3 kg/m2 14090.56 g 123 mm[Hg] 78 mm[Hg] DINH Finney [place] - [facility] 3 15:37:21 Date Recorded Body height Body mass index (BMI) Body weight Heart rate Respiratory rate Systolic blood pressure Diastolic blood pressure Provider Name and Address Organization Details Last Updated DateTime 4 158.75 cm 29.2 kg/m2 27941.9 6 g 80 /min 16 /min 113 mm[Hg] 76 mm[Hg] Consuelo Banegas [place] - [facility] 4 14:12:53 Date Recorded Body height Body mass index (BMI) Body weight Heart rate Systolic blood pressure Diastolic blood pressure Provider Name and Address Organization Details Last Updated DateTime 4 158.75 cm 29.1 kg/m2 21619.5 6 g 68 /min 128 mm[Hg] 82 mm[Hg] Adrienne Torres MA [place] - [facility] 4 15:27:14 Date Recorded Body height Body mass index (BMI) Body weight Body temperature Heart rate Respiratory rate Systolic blood pressure Diastolic blood pressure Provider Name and Address Organization Details Last Updated DateTime 4 158.75 cm 30.9 kg/m2 54070.1 g 98.3 [degF] 80 /min 20 /min 128 mm[Hg] 79 mm[Hg] Soledad Solano MA [place] - [facility] 4 13:47:34 Social History Question Answer Notes LastModified by Organizat ion Details LastModified Time Tobacco Smoking Status Never Smoker Farida Berger MA null, [place] - [facility] 08/28/2017 11:10:17 Do You Have An Advance [...] COVID-19 While That Case Was Ill? No [email or web address] Information not available 06/12/2021 In The 14 Days Before Symptom Onset, Have You Had Close Contact With A Person Who Is Under Investigation For COVID-19 While That Person Was Ill? No [email or web address] Information not available 06/12/2021 Have You Been To An Area Known To Be High Risk For COVID-19? No [email or web address] Information not available 06/12/2021 Are You Currently [...] Carbon Monoxide Detectors In Your Home? Yes [email or web address] Information not available 09/26/2022 Are You Passively Exposed To Smoke? No [email or web address] Information no t available 09/26/2022 Do You Or Have You Ever Used Smokeless Tobacco? Never Used Smokeless Tobacco Information not available 08/18/2019 How Much Tobacco Do You Smoke? No Information not available 08/18/2019 General Stress Level Low Information not available 08/28/2017 Do You Use Any Illicit Or Recreational Drugs? No [email or web address] Information not available 09/26/2022 Do You Use Sunscreen Routinely? No Information not available 08/28/2017 Has Tobacco Cessation Counseling Been Provided? No Information not available 10/09/2023 On What Date Was Tobacco Cessation Counseling Provided? 08/18/2024 Information not available 08/18/2024 How Many Years Have You Smoked Tobacco? 0 [email or web address] Information not available 08/18/2019 Do You Or Have You Ever Used Any Other Forms Of Tobacco Or Nicotine? No [email or web address] Information not available 06/12/2021 Sex: Female Functional [...] or Bladder Problems N Lung Disease N Depression N Blood Clots N GI Problems N Acne N Breast Problem N Eating Disorder N Anemia N Anesthesia Complications N Headaches/Migraines [...] Diagnosis/Indication Diagnosis SNOMED-CT Code Diagnosis ICD10 Code [id number] Tahir TamayoCarleen Aubrey HC ([employer] WORKER) [address] [place] [address] 08/28/2017 10:34:30 08/28/2017 12:26:34 Family planning surveillance 246097366 Z30.09 [id number] Tahir TamayoCarleengloria Burgos HC ([employer] WORKER) [address] [place] [address] 0 05/21/2018 14:57:54 05/21/2018 16:40:51 Family planning surveillance 265072378 Z30.09 Exposure t o sexually transmissible disorder 998300434 Z20.2 Z11.3 [id number] Tahir TamayoCarleengloria Burgos ([employer]) [address] [place] [address] 0 08/18/2019 11:12:57 08/18/2019 13:19:43 Family planning surveillance 512054596 Z30.09 Exposure t o sexually transmissible disorder 087225750 Z20.2 Z11.3 Genital warts 578492579 A63.0 Acute urin manuel tract infection 424074830 N39.0 [id number] MD Aubrie Patterson [address] [place] [address] Dr [address] [place] [address] 1 05/31/2020 10:40:08 06/01/2020 11:44:19 History of sexually transmitted disease 743207985 Z86.19 At [facility] ed risk of urinary tract infection 607644046 Z91.89 [id number] MD Aubrie Patterson [address] [place] [address] Dr [address] [place] [address] [address] 12/28/2020 09:42:00 12/29/2020 11:40:40 Venereal disease screening 743481023 Z11.3 At [facility] ed risk of urinary tract infection 239528627 Z91.89 [id number] MD Aubrie Patterson [address] [place] [address] 01/03/2021 08:53:22 01/09/2021 11:18:32 Gonorrhea 89877222 A54.9 [id number] BRIAN Donis [address] [facility] [place] [address] 04/26/2021 15:05:26 04/27/2021 06:33:02 Vaginal discharge 263008341 N89.8 High risk sexual behavior 107705510 Z72.51 Easy bruising 704192290 R58 Surveillan ce of oral contraception 519368762 Z30.41 [id number] BRIAN Donis [address] [facility] [place] [address] 05/24/2021 16:27:52 05/25/2021 10:03:24 Vaginal discharge 668161674 N89.8 Lesion of vulva 99284091 6 N90.89 [id number] BRIAN Donis [address] [facility] [place] [address] 06/12/2021 14:58:31 06/13/2021 10:32:12 Lesion of vulva 147657887 N90.89 [id number] MD Aubrie Patterson [address] [facility] [place] [address] 08/15/2021 15:05:58 08/16/2021 05:51:47 Venereal disease screening 279813874 Z11.3 At [facility] risk of urinary tract infection 907703117 Z91.89 Acute urin manuel tract infection 879967594 N39.0 [id number] MD Aubrie Patterson [address] [facility] [place] [address] 10/18/2021 11:59:11 10/19/2021 06:43:59 Venereal disease screening 897902172 Z11.3 Vaginal discharge 159393 006 N89.8 Pruritus of vagina 17939 003 L29.3 [id number] BRIAN Donis [address] [facility] [place] [address] 12/04/2021 11:22:20 12/05/2021 04:35:42 High risk sexual behavior 059654971 Z72.51 [id number] BRIAN Donis [address] [facility] [place] [address] 12/25/2021 16:28:51 12/26/2021 06:59:27 Vaginal discharge 584965649 N89.8 High risk sexual behavior 802801771 Z72.51 Body mass index 25-29 - overweight 488277043 Z68.28 [id number] BRIAN Donis [address] [facility] [place] [address] 01/31/2022 16:13:20 02/01/2022 06:02:39 Dysuria 39366119 R30.9 History of sexually transmitted disease 474662709 Z86.19 Contracept ion care management 237772001 Z30.9 [id number] BRIAN Donis [address] [facility] [place] [address] 05/02/2022 15:18:38 05/03/2022 08:18:23 Vaginal discharge 467943915 N89.8 [id number] BRIAN Donis [address] [facility] [place] [address] 05/16/2022 10:53:49 05/21/2022 10:10:01 Vaginal discharge 441396279 N89.8 High risk sexual behavior 174195748 Z72.51 Contracept ion care management 255609221 Z30.9 [id number] BRIAN Donis [address] [facility] [place] [address] 06/20/2022 11:20:33 06/21/2022 08:45:13 Vaginal irritation 990540996 N89.8 Body mass index 30+ - obesity 880540099 Z68.30 [id number] MD Aubrie Bailon [address] [facility] [place] [address] 08/27/2022 14:49:47 08/28/2022 12:37:47 Obesity 327264219 E66.9 Venereal d isease screening 016983541 Z11.3 Bacterial vaginosis 4197 44853 N76.0 [id number] Farzaneh Fischer, [facility]- Aubrie [address] [facility] [place] [address] 09/26/2022 09:35:59 09/27/2022 09:47:42 High risk sexual behavior 044250188 Z72.51 Obesity 321544941 E66.9 Surveillan ce of oral contraception 544884627 Z30.41 [id number] [facility] Aubrie [address] [facility] [place] [address] 12/12/2022 10:44:51 12/13/2022 09:41:57 At increased risk of urinary tract infection 672975960 Z91.89 High risk sexual behavior 681217421 Z72.51 Vaginal discharge 910566 006 N89.8 [id number] Refugio Cárdenas MD Aubrie [address] [facility] [place] [address] 01/21/2023 16:04:13 01/25/2023 14:58:34 Venereal disease screening 783734364 Z11.3 Dysuria 86293998 R30.0 Vaginal discharge 040422 006 N89.8 [id number] Jocy Perdomo RN Ford [address] [facility] [place] [address] 01/25/2023 14:52:26 01/29/2023 11:28:46 Gonorrhea 32953949 A54.9 [id number] BRIAN Donis Aubrie [address] [facility] [place] [address] 08/06/2023 15:21:15 08/07/2023 08:50:37 Routine gynecologic examination done 4264562551 9101 Z01.419 Vaginal discharge 220443 006 N89.8 Surveillan ce of oral contraception 603267619 Z30.41 Body mass index 25-29 - overweight 157831380 Z68.28 [id number] CARLA Chaves Aubrie [address] [facility] [place] [address] 10/09/2023 14:04:09 10/10/2023 10:21:35 High risk sexual behavior 098156320 Z72.51 Overweight 217396408 E66 .3 [id number] CARLA Chaves Aubrie [address] [facility] [place] [address] 11/14/2023 15:16:22 11/15/2023 06:33:07 Venereal disease screening 306573766 Z11.3 [id number] MD Aubrie Cates [address] [facility] [place] [address] 08/18/2024 13:33:25 09/01/2024 15:04:02 Obesity 184413116 E66.9 Hidradenit is suppurativa 29401803 L73.2 Depressive disorder 3548 9007 F32.A Acid reflux 450455420 K2 1.9 Constipation 15471075 K5 9.00 Screening for malignant neoplasm of cervix 832726193 Z12.4 History of sexually transmitted disease 928057388 Z86.19 At [facility] risk of sexually transmitted infection 541362735 Z20.2 Tetanus va ccination declined by patient 748732137 Z28.21 Health Concerns Section Related Observation LastModified by Organization Detai ls LastModified Time None Recorded Concern Status LastModified by Organization Details LastModified Time None Recorded Advance Directives Directive N: Payers Encounter Date Sequence Insurance Name Policy Number Policy Recio Covered Member ID Recoi Member ID Guarantor Name 01/25/2023 1 *SELF PAY* Zak Reynoso Sahil 08/06/2023 1 *SELF PAY* Ar ionna L Sahil 10/09/2023 1 *SELF PAY* Ar ionna L Sahil 11/14/2023 1 *SELF PAY* Zak Reynoso Sahil 08/18/2024 1 [facility] (MEDICAID REPLACEMENT - HMO) [id number] Deirdre Baxter [id number] Sahil Notes Date Note Type Note Provider Name and Address Organization Details Recorded Time 3 text/html Annual GYNReported bypatient.Menstrual cycle:Normal menses Urinary symptoms:No hematuria; No incontinence Vulva:No genital lesion Vagina:Foul-smelling;White Breast:No breast pain; No breast lump; No nipple discharge Current Contraception:Satisfied with current contraception; Oral contraceptives Sexual complaints:No sexual complaints; No pain during intercourse; Normal libido Menopausal Symptoms:No menopausal symptoms; Normal vaginal lubrication Psychological symptoms:No depression; No anxiety; No PMDD Preventive measures:Encourage self breast examination; Encourage regular exercise; Encourage no tobacco use; Encourage regular mammograms starting age 40; Followed with Q3 year pap smear and high risk HPV typing Pt is here for annual. Pt has complaint of possible bv. pt reports fishy odor and vaginal discharge. pt denies any pelvic pain. Pt also due for PAULA for history of gonorrhea. Pt reports completed treatment. BRIAN Donis Attn: Accounting[address] [place], [address], [facility] 08/06/2023 16:10:32 4 text/html Annual GYNReported bypatient.Menstrual cycle:Normal menses Urinary symptoms:No hematuria; No incontinence Vulva:No genital lesion Vagina:Foul-smelling;White Breast:No breast pain; No breast lump; No nipple discharge Current Contraception:Satisfied with current contraception; Oral contraceptives Sexual complaints:No sexual complaints; No pain during intercourse; Normal libido Menopausal Symptoms:No menopausal symptoms; Normal vaginal lubrication Psychological symptoms:No depression; No anxiety; No PMDD Preventive measures:Encourage self breast examination; Encourage regular exercise; Encourage no tobacco use; Encourage regular mammograms starting age 40; Followed with Q3 year pap smear and high risk HPV typing walk in std testing SEBASTIÁN Chaves Attn: Accounting[address] [place], [address], [facility] - [facility] 10/09/2023 14:59:07 4 text/html Annual GYNReported bypatient.Menstrual cycle:Normal menses Urinary symptoms:No hematuria; No incontinence Vulva:No genital lesion Vagina:Foul-smelling;White Breast:No breast pain; No breast lump; No nipple discharge Current Contraception:Satisfied with current contraception; Oral contraceptives Sexual complaints:No sexual complaints; No pain during intercourse; Normal libido Menopausal Symptoms:No menopausal symptoms; Normal vaginal lubrication Psychological symptoms:No depression; No anxiety; No PMDD Preventive measures:Encourage self breast examination; Encourage regular exercise; Encourage no tobacco use; Encourage regular mammograms starting age 40; Followed with Q3 year pap smear and high risk HPV typing walk in std testing SEBASTIÁN Chaves Attn: Accounting[address] [place], [address], [facility] 11/14/2023 15:32:59 4 text/html Deirdre Baxter is a 24 [...] denies keloid formation. 2. [facility].Reports constipation, with on and [...] like to BH referral for counseling. Uzma García MD Attn: Accounting[address] [place], [address], [place] [facility] 08/31/2024 11:32:08 OBGyn Episode No OBEpisode recorded.
[2024-09-10 22:47] VITALS: BP 138/89; PULSE 88; RESP 20; TEMP 36.8; O2SAT 99
[2024-09-11 02:30] VITALS: BP 130/82; PULSE 68; RESP 16; TEMP 36.9; O2SAT 100
[2024-09-11] MEDS: methocarbamoL 750 MG TABLET PO (02:38)
[2024-09-11] MEDS: KETOROLAC 30 MG/ML VIAL (*BKC) IM (02:38)
--- NOTE | 2024-09-11 02:58 | ED_ITS ---
HPI - Neck Pain/Injury General Chief Complaint: Neck Pain/Injury Stated Complaint: neck pain Time Seen by Provider: 09/11/24 02:20 History of Present Illness HPI Narrative: 24-year-old female presenting to the emergency room with a chief complaint of left-sided neck pain. She states that her pain is been going on for several months. 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 Patient states that she has b een having intermittent pain in the left side of her neck as well as headaches that were described as tension-type and pulling sensations in the left side of her neck. She states that she went to a chiropractor and had some adjustments but that did not alleviate her symptoms. Denies any nauseousness, vomiting, trauma, injuries, or car accidents, falls. No chest pain shortness a breath. She was otherwise in her normal state of health and has been started on muscle relaxers by previous physician that diagnosed with muscle spasms and torticollis. Patient is enquiring about a 2nd opinion so she presents to the emergency department today. Denies any new injuries or trauma. No vision changes, no tinnitus, blurring vision, trismus, claudication, fever, chills. Related Data Allergies Allergy/AdvReac Type Severity Reaction Status Date / Time No Known Allergies Allergy Verified 09/10/24 22:54 Review of Systems Review of Systems: As reviewed above in HPI Exam Narrative: GENERAL: [Well-appearing, well-nourished, and in no acute distress.] HEAD: [Normocephalic, atraumatic.] EYES: [PERRLA and EOMI.] ENT: Nares clear, no rhinorrhea or epistaxis. Mucous membranes moist. NECK: Supple without step-offs deformities. No pain with midline percussion of the cervical spine. Tenderness over the left-sided paracervical muscles and trapezius region. No restricted range of motion. CHEST: [Clear to auscultation. No respiratory distress.] HEART: [Regular rate and rhythm]. No murmur heard. [Normal peripheral pulses.] ABDOMEN: [Soft, nondistended], [nontender], [No rigidity or guarding] EXTREMITIES: Normal range of motion. [No edema.] SKIN: Warm, dry, no rash. NEURO: [No focal deficits]. Alert and oriented [x3.] PSYCH: [Normal mood and affect.] Course Vital Signs Vital signs: Vital Signs Temperature 36.8 C 09/10/24 22:47 Pulse Rate 88 09/10/24 22:47 Respiratory Rate 20 09/10/24 22:47 Blood Pressure 138/89 09/10/24 22:47 Pulse Oximetry 99 09/10/24 22:47 Oxygen Delivery Room Air 09/10/24 22:47 Temperature 36.6 C 09/11/24 06:12 Pulse Rate 68 09/11/24 06:12 Respiratory Rate 16 09/11/24 06:12 Blood Pressure 117/68 09/11/24 06:12 Pulse Oximetry 99 09/11/24 06:12 Oxygen Delivery Room Air 09/10/24 22:47 MDM - Neck Pain/Injury MDM Narrative Medical decision making narrative: 24-year-old female presenting for evaluation of left-sided posterior neck pain. She states that is causing her to have a headache presently and that she was previously told she had a muscle spasm and was put on muscle relaxers but these are not helping. She also had chiropractic adjustments which are also not helping. She denies any falls or recent injuries. 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 Her reassuring vital signs and clinical examination are good signs and she has no red flag signs of neck her headache pain. No audible bruit on auscultation of her neck, no tinnitus, no weakness, neuropathy, paresthesias or weakness. Headache is very localized to the left side of her posterior occipital scalp and tension type in quality. This time differential includes tension headache, torticollis, cervical spinal muscle spasms, unlikely degenerative disc disease or subluxation, spondylolisthesis. CT cervical spine was ordered this time given that this is patient's repeat visit for similar complaint and we treated her with combination of Robaxin and Toradol for muscle relaxer and pain control. She was re- evaluated had improvement in both her neck pain and headache. Patient was re-evaluated and had improvement her pain, her CT scan was independent reviewed also interpreted by radiology says some spasmodic torticollis and otherwise very benign examination and no acute findings on her CT scanner concerning. She can follow-up with her PCP outpatient. Sending home with Robaxin, ibuprofen. Medical Records Attestation: I reviewed the patient's medical records. Lab Data Attestation: I reviewed the patient's lab results. Imaging Data Attestation: I personally reviewed and interpreted this imaging study as follows: My impression: Impressions Cervical Spine CT 09/11/24 06:49 IMPRESSION: 1. 15 degrees cervicothoracic levocurvature and mild reversal of the normal cervical lordosis which could be positional or due to muscle spasm. Otherwise unremarkable cervical spine CT. Discharge Plan Discharge Clinical Impression: Strain of neck muscle, Torticollis Patient Disposition: Home, Self-Care Condition: Stable Instructions: Cervical Strain (ED), Cervical Sprain (ED) Patient Language: Georgian Prescriptions: New methocarbamol 750 mg tablet 750 mg PO TID PRN (Reason: muscle spasm) Qty: 30 0RF ibuprofen 600 mg tablet 600 mg PO TID PRN (Reason: fever or pain) Qty: 30 0RF Follow-up/Referrals: UNKNOWN,DOCTOR [Primary Care Provider] - Time of Disposition: 07:15
[2024-09-11 04:26] VITALS: BP 119/67; PULSE 76; RESP 16; TEMP 36.7; O2SAT 99
[2024-09-11 06:12] VITALS: BP 117/68; PULSE 68; RESP 16; TEMP 36.6; O2SAT 99
== END 2024-09-11 07:25 | disposition home or self-care (01) ==
PROVIDERS: Emergency Provider Student in an Organized Health Care Education/Training Program
DX: S16.1XXA Strain of muscle, fascia and tendon at neck level, initial encounter (principal); M43.6 Torticollis; X50.1XXA Overexertion from prolonged static or awkward postures, initial encounter
CPT/HCPCS: 72125; 96372; 99284; A9270; J1885